=== PATIENT | female | born 1960 | race Caucasian/White ===

== ENCOUNTER 2019-12-27 09:51 | Emergency (ER) | payer OTHER, SELFPAY ==
[2018-10-11 13:12] VITALS: BMI 44.6
[2019-12-27 09:53] VITALS: BP 171/88; PULSE 80; RESP 18; TEMP 36.9; O2SAT 95; BMI 42.5
--- NOTE | 2019-12-27 10:14 | RAD_ITS ---
STUDY: X-RAY CHEST REASON FOR EXAM: Female, 59 years old. COUGH X 2 WEEKS TECHNIQUE: Single frontal view of the chest. COMPARISON: None. FINDINGS: Prominent interstitial markings with areas of basilar patchy airspace disease and groundglass opacities are present. There is no demonstrated pleural abnormality. Normal size heart. Normal mediastinum and esha. Normal visualized pulmonary arteries. Normal visualized aortic arch and descending thoracic aorta. Normal visualized thoracic spine. Normal visualized ribs, clavicles, and shoulders. There is no demonstrated abnormality of the visualized soft tissue structures of the upper abdomen. RAD/Chest 1 View (Portable) IMPRESSION: Prominent interstitial markings with areas mid lung and lower lung bilateral patchy airspace disease and groundglass opacity with underlying infectious etiology/viral component not excluded, clinically correlate. Electronically Signed: Angel Beach DO at 11:39 EDT , Service support ,
[2019-12-27 10:42] LABS: Absolute Lymphocyte Count 0.95 X10^3/uL (0.83-4.51); Absolute Neutrophil Count 4.5 X10^3/uL (2.0-7.7); Basophil# 0.01 X10^3/uL; Basophil% 0.2 % (0-1); Hematocrit 36.7 % (37-47); Hemoglobin 11.7 g/dL (12.0-15.0); Lymphocyte # 0.95 X10^3/ul (4.0); Lymphocyte % 16.5 % (19-41); Mean Corp Hgb Conc 31.9 g/dL (32-36); Mean Corpuscular Hgb 26.7 pg (27.0-32.0); Mean Corpuscular Volume 83.8 fL (81-99); Monocyte# 0.27 X10^3/uL; Monocyte% 4.7 % (0-10); NRBC Flagged by Analyzer 0 % (0-5); Neutrophil # 4.49 X10^3/uL (2.7-7.7); Neutrophil % 77.9 % (47-70); POSITIVE MORPHOLOGY YES; Platelet Count 412 K/mm3 (150-450); RBC Distribution Width CV 14.7 % (11.6-14.6); RBC Distribution Width SD 45.3 fl (35.1-43.9); Red Blood Count 4.38 M/mm3 (4.2-5.4); White Blood Count 5.8 K/mm3 (4.4-11.0)
[2019-12-27 10:46] LABS: Differential Indicated SCAN CRITERIA MET
--- NOTE | 2019-12-27 11:01 | ED.VIS.URI ---
History of Present Illness Informant: Patient Onset: Weeks - 2 weeks Context: Gradual Onset Timing: Continuous Quality: fatigue Location: entire body Current Severity: Moderate Maximum Severity: Severe Worsened by: - - nothing Relieved by: - - nothing Associated Symptoms: Nasal Congestion, Myalgias, Nausea, Diarrhea, Productive Cough. Negative for: Headache, Sinus Pressure, Vomiting, Shortness of Breath, Chest Pain, Nonproductive cough, Hemoptysis Narrative: 59-year-old female history of hypertension presents with flulike symptoms for 2 weeks. She has been having intermittent fevers for 2 weeks and diarrhea as well as productive cough with sputum. No chest pain no shortness of breath no hemoptysis no headache no neck pain no leg pain or swelling no lightheadedness or dizziness no back pain. 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 so she can return Prior similar symptoms: No Recent Illness/Hospitalization: No <Blake Chang - Last Filed: 12/27/19 12:06> <Cayla Thopmson - Last Filed: 12/27/19 12:46> Chief Complaint: Fever Past Medical History Prior records reviewed: Yes Past Medical History: - - HTN Surgical History: hysterectomy, tonsillectomy Lives: With Family Smoking Status: Never smoker Alcohol: None Drugs: None <Blake Chang - Last Filed: 12/27/19 12:06> <Cayla Thompson - Last Filed: 12/27/19 12:46> - Allergies and Home Meds Allergies/Adverse Reactions: Allergies No Known Allergies Allergy (Verified 12/27/19 09:53) Primary Care Physician: Haile Wilhelm MD [STAFF PHYSICIAN] - 3-5 Days Review of Systems General: Reports: Chills, Fever, Malaise Eyes: Denies: Visual changes - bilaterally, Blurred Vision - bilaterally, Diplopia ENT: Denies: Rhinorrhea, Sore throat Cardiovascular: Denies: Chest pain, Palpitations, Heart racing Respiratory: Reports: Cough, Sputum. Denies: Dyspnea, Dyspnea on exertion, Orthopnea, Paroxysmal nocturnal dyspnea Gastrointestinal: Reports: Nausea, Diarrhea. Denies: Abdominal pain, Vomiting, Constipation, Melena, Hematochezia Genitourinary: Denies: Dysuria, Hematuria, Frequency Musculoskeletal: Reports: Myalgias. Denies: Arthralgias, Neck pain, Back pain, Swelling, Extremity Pain Skin: Denies: Rash, Abscess, Abrasions, Wounds Neurological: Denies: Headache, Weakness, Parasthesia Psych: Denies: Depression, Anxiety Hematologic: Denies: Easy bruising, Easy bleeding <Blake Chang - Last Filed: 12/27/19 12:06> Physical Exam Vital Signs/Narrative: Vital Signs Temp Pulse Resp BP Pulse Ox 12/27/19 09:53 98.5 F 80 18 171/88 H 95 Inital Vital Signs reviewed: Yes General: Well nourished, Well developed Head: Normocephalic, Atraumatic Ears: Normal external canal, TM's clear Nose: Normal Inspection, No Rhinorrhea Mouth/Throat: Normal Inspection, No Posterior Erythema, Airway Patent Neck: Supple, Nontender, No Lymphadenopathy, No Meningismus Cardiovascular: Regular rate, Regular rhythm, No murmurs Respiratory: No distress, CTA bilaterally, Chest nontender Abdomen: Soft, Nontender, Nondistended, Normal bowel sounds, No masses Back: Nontender, Normal Inspection. Negative for: CVA tenderness Extremities: Nontender, No edema Skin: Normal color, No rash, No Trauma Neurological: Alert, Oriented x3 Psychological: Normal affect, Normal Mood <Blake Chang - Last Filed: 12/27/19 12:06> Vital Signs/Narrative: Vital Signs Temp Pulse Resp BP Pulse Ox 12/27/19 12:16 72 18 146/55 H 94 12/27/19 11:32 98.1 F 75 17 146/55 H 95 12/27/19 11:29 76 17 96/66 96 12/27/19 09:53 98.5 F 80 18 171/88 H 95 <Cayla Thompson - Last Filed: 12/27/19 12:46> Diagnostic/Tx/Re-eval Chest X-Ray - ED: 1 View, Read by ED Physician, Read by Radiologist, - - Bilateral groundglass changes concerning for COVID-19 - EKG Initial EKG Interpretation: Sinus Rhythm, S-T Depression Prior: No Prior - Medical Decision Making On arrival patient was complaining of symptoms that were concerning for coronavirus therefore she was placed in proper isolation room all protective equipment was worn during history and physical exam and multiple repeat evaluations. Patient had no fever. Laboratory work-up showed a potassium of 2.7. The rest of her labs are unremarkable. EKG showed some lateral ST depressions but no ST elevations. Rhythm is sinus rhythm. She has no previous EKG at this time that is available for comparison. Chest x-ray showed prominent interstitial markings with areas of midlung and lower lung bilateral patchy airspace disease and groundglass opacity with underlying infectious etiology or viral component not excluded and they recommended clinical correlation. I spoke with health department they approved a test for coronavirus this was sent to the health department. Discussed with patient we do think that she likely has this based off of her chest x-ray and symptoms. She will continue to self quarantine. We will give her 60 mEq of potassium replacement here followed by 4 more days of 20 mEq twice daily and she was advised to follow closely with her doctor and they will contact her with results for coronavirus testing. Impressions Chest X-Ray 12/27/19 10:14 IMPRESSION: Prominent interstitial markings with areas mid lung and lower lung bilateral patchy airspace disease and groundglass opacity with underlying infectious etiology/viral component not excluded, clinically correlate. Electronically Signed: Angel DO Yong at 11:39 EDT , Service support , 12/27/19 10:14 Chest 1 View (Portable) [RAD] Stat Laboratory Results 12/27/19 12/27/19 10:30 10:30 WBC 5.8 RBC 4.38 Hgb 11.7 L Hct 36.7 L MCV 83.8 MCH 26.7 L MCHC 31.9 L RDW Std Deviation 45.3 H RDW Coeff of Julio 14.7 H Plt Count 412 MPV 9.0 Immature Gran % (Auto) 0.700 Neut % (Auto) 77.9 H Lymph % (Auto) 16.5 L Baxter % (Auto) 4.7 Eos % (Auto) 0.0 Baso % (Auto) 0.2 Absolute Neuts (auto) 4.5 Absolute Lymphs (auto) 0.95 Nucleated RBC % 0 Reactive Lymphocytes RARE Sodium 138 Potassium 2.7 L* Chloride 103 Carbon Dioxide 27.0 Anion Gap 8 BUN 11 Creatinine 0.67 Estim Creat Clear Calc 66.54 Est GFR (MDRD) Af Amer 115 Est GFR (MDRD) Non-Af 95 BUN/Creatinine Ratio 16.4 Glucose 124 H Calcium 8.3 L <Blake Chang - Last Filed: 12/27/19 12:06> - Medical Decision Making Patient seen and evaluated with physicians assistant professor of mathematics. Patient was independently evaluated and examined. Patient presents with 2-week history of fevers, nausea, vomiting, diarrhea. She has had mild cough. Patient does work at a assisted. She was offered Covid testing earlier this week but declined. Patient sitting upright in bed no acute distress. Head neck examination unremarkable. Heart is regular rate and rhythm. Lung sounds are clear. Abdomen is soft and nontender. Labs are obtained. Patient does have hypokalemia and is given oral replacement here. She tolerates this well. EKG is obtained that shows minimal ST depression. No typical changes associated with hypokalemia. COVID test was obtained and sent. Patient was advised she would receive results via telephone. If her symptoms worsen in any way she is to return to the emergency room. Vital signs are stable and O2 sats are in the mid to upper 90s. <Cayla Thompson - Last Filed: 12/27/19 12:46> ED Disposition <Blake Chang - Last Filed: 12/27/19 12:06> <Cayla Thompson - Last Filed: 12/27/19 12:46> - Plan for ED Patient: Disposition: Home or Assisted Living Diagnosis: Viral syndrome, rule out COVID-19, Hypokalemia Instructions: ED Viral Syndrome Prescriptions: Potassium Chloride [K-Dur] 20 meq PO BID #8 tab Transmission Status: Received by [facility] [facility] Referrals: Haile Wilhelm MD [STAFF PHYSICIAN] - 3-5 Days
[2019-12-27 11:07] LABS: Anion Gap 8 (5-15); BUN 11 mg/dL (7-18); BUN/Creat Ratio 16.4 RATIO (10-20); Calcium,Total 8.3 mg/dL (8.5-10.1); Chloride 103 mmol/L (98-107); Creatinine, Serum 0.67 mg/dL (0.55-1.02); EST Glomerular Filtration Rate 95 mL/min (>60); Est Glom Filt Rate - Afr Amer 115 mL/min (>60); Estimated Creatinine Clearance 66.54 ml/min; Glucose 124 mg/dL (74-106); Potassium 2.7 mmol/L (3.5-5.1); Sodium Level 138 mmol/L (136-145)
[2019-12-27 11:12] LABS: Reactive Lymphocyte RARE
--- NOTE | 2019-12-27 11:28 | EKG12_ITS ---
Test Reason : DYSRHYTHMIA Blood Pressure : / mmHG Vent. Rate : 072 BPM Atrial Rate : 072 BPM P-R Int : 168 ms QRS Dur : 086 ms QT Int : 412 ms P-R-T Axes : 064 069 037 degrees QTc Int : 451 ms Normal sinus rhythm Nonspecific ST and T wave abnormality Abnormal ECG Confirmed by JUMA BYRD, MARKUS ([id number]), society editor ALEXANDER PRAJAPATI ([id number]) on 12/30/2019 9:02:28 AM Referred By: PANKAJ Confirmed By:MARKUS DENNISON MD
[2019-12-27 11:29] VITALS: BP 96/66; PULSE 76; RESP 17; O2SAT 96
[2019-12-27 11:32] VITALS: BP 146/55; PULSE 75; RESP 17; TEMP 36.7; O2SAT 95
[2019-12-27 12:16] VITALS: BP 146/55; PULSE 72; RESP 18; O2SAT 94
== END 2019-12-27 12:21 | disposition home or self-care (01) ==
PROVIDERS: Emergency Medicine; Emergency Provider Physician Assistant Medical
DX: B34.9 Viral infection, unspecified (principal); E87.6 Hypokalemia; I10 Essential (primary) hypertension
CPT/HCPCS: 71045; 80048; 85025; 87635; 93005; 96360; 96361; 99284; J7040; U0004

== ENCOUNTER 2021-02-24 10:49 | Emergency (ER) | payer OTHER, SELFPAY ==
[2021-02-24 10:51] VITALS: BP 166/85; PULSE 74; RESP 16; TEMP 36.3; O2SAT 98; BMI 47.5
--- NOTE | 2021-02-24 10:59 | ED.VIS.FALL ---
HPI HPI - Fall History of Present Illness Chief Complaint: Fall Occured/Mechanism Occurred: Today Mechanism/Context: Yes trip and Yes slip Pain/Injury Quality of Pain: Dull Current Severity: Moderate Maximum Severity: Moderate Narrative Narrative: The patient is a 60-year-old female medical history significant for hypertension who presents to the emergency department after a fall. Patient was at work. States she was ambulating. She thinks that she tripped over her feet. She fell forward and landed on both knees and then struck her right elbow. She did not strike her head. She denies loss of consciousness. She is complaining of pain in both knees. She is concerned because she has had bilateral knee replacements. She denies other injury. She is otherwise been in her normal state of health. [facility] Medical History Arthritis Fatigue Hay fever Hypertension Severe headache Home Medications levothyroxine 25 mcg capsule 25 mcg PO DAILY 10/11/18 [History Last Taken 12/27/19] losartan 25 mg tablet 25 mg PO DAILY 10/11/18 [History Last Taken 12/27/19] omeprazole 20 mg tablet,delayed release 20 mg PO DAILY 10/11/18 [History Last Taken 12/27/19] sertraline 25 mg tablet 25 mg PO DAILY 10/11/18 [History Last Taken 12/27/19] trazodone 100 mg tablet 100 mg PO DAILY 10/11/18 [History Last Taken 12/27/19] potassium chloride 20 meq PO BID #8 tab 12/27/19 [Rx Last Taken Unknown] hydrocodone-acetaminophen 1 tab PO Q6H PRN PRN 3 Days #10 tablet 02/24/21 [Rx Last Taken Unknown] Allergy/AdvReac Type Severity Reaction Status Date / Time No Known Allergies Allergy Verified 02/24/21 10:49 Social History Smoking Status: Never smoker alcohol intake: never ROS ROS ED Constitutional Constitutional ED: Denies chills or fever(s) Eyes Eyes: Denies blurry vision or change in vision ENT ENT ED: Denies ear pain or sore throat Cardiovascular Cardiovascular: Denies chest pain or palpitations Respiratory/Chest Respiratory/Chest: Denies cough, dyspnea or dyspnea on exertion Gastrointestinal Gastrointestinal: Denies abdominal pain, nausea or vomiting Genitourinary Genitourinary ED: Denies dysuria or urinary frequency Musculoskeletal Musculoskeletal: Denies arthralgias or myalgias Integumentary Denies rash Neurologic Neurologic: Denies headache(s) or paresthesias Psychiatric Psychiatric: Denies anxiety or depression Endocrine Endocrinology: Denies polydipsia or polyuria Allergic/Immunologic Allergic/Immunologic ED: Denies urticaria EXAM Physical Exam Const Vital Signs: 02/24/21 10:51 02/24/21 11:18 Temperature 97.3 F L Temperature Source Temporal Pulse Rate 74 Respiratory Rate 16 Respiratory Effort Normal Non-Labored Respiratory Depth Normal Respiratory Pattern Normal Blood Pressure 166/85 H Blood Pressure Mean 112 Pulse Ox 98 Oxygen Delivery Method Room Air Room Air Positive well nourished and well developed General Appearance ED: well developed HEENT Reports normocephalic, head/scalp atraumatic and moist mucous membranes Eyes PERRL and EOMs intact bilaterally Neck no lymphadenopathy and supple General: Negative for tenderness Chest Wall inspection of chest normal Resp normal respiratory effort and clear to auscultation bilaterally Cardio regular rate, regular rhythm and no murmurs GI normal to inspection, nondistended, normoactive bowel sounds Palpation: Negative for tender, guarding or rebound tenderness present Back/Spine no CVA tenderness Cervical Spine: Negative for cervical spine tenderness Thoracic Spine / Upper Back: Negative for thoracic spinal tenderness Extremity normal to inspection Extremity Narrative: Mild tenderness palpation of bilateral knees. Extension preserved. No gross laxity. Normal pulses. General Extremety ED: Negative for tenderness Neuro oriented x3 and CN's II-XII intact bilaterally Neuro Narrative: No focal deficits appreciated. Sensorium / Orientation: alert Psych mental status grossly normal Skin no rashes or lesions noted, no wounds and skin turgor normal MDM MDM MDM Narrative Medical decision making narrative: Patient presents after mechanical fall. She had no head injury. Her major complaint is of pain in the knees. She is able to bear weight, but does have bilateral prostheses. There is a small abrasion but no evidence of open fracture. Plain films were obtained of bilateral knees. They are reviewed by both myself and the radiologist. The hardware is intact. There is no fracture. At this point, the patient be discharged home with follow-up with corporate [facility]. She is given a short course of analgesics. Impression 1. Mechanical fall 2. Bilateral knee contusion Radiography Diagnostic Testing: Radiology Impression Knee X-Ray 02/24/21 11:30 IMPRESSION: Status post total knee replacement. Soft tissue swelling. Electronically Signed: Adolph Pineda MD at 12:20 EDT , Service support , Knee X-Ray 02/24/21 11:42 IMPRESSION: Status post total knee replacement. No acute abnormality is seen. Electronically Signed: Adolph Pineda MD at 12:19 EDT , Service support , Discharge Plan Triage Chief Complaint: Fall ED Provider: Rizwan Tsang Dx/Rx/DC Orders Instructions: ED Knee Sprain Prescriptions: New hydrocodone-acetaminophen [hydrocodone-acetaminophen] 1 TABLET tablet 1 tab PO Q6H PRN PRN (Reason: Pain) 3 Days Qty: 10 RF: 0 No Action trazodone 100 mg tablet 100 mg PO DAILY RF: 0 sertraline 25 mg tablet 25 mg PO DAILY RF: 0 levothyroxine 25 mcg capsule 25 mcg capsule 25 mcg PO DAILY RF: 0 losartan 25 mg tablet 25 mg PO DAILY RF: 0 omeprazole 20 mg tablet,delayed release (DR/EC) 20 mg PO DAILY RF: 0 potassium chloride 20 MEQ tablet 20 meq PO BID Qty: 8 RF: 0 Primary Care Provider: Sai Blanchard Referrals: [facility] [GROUP OF PHYSICIANS] - 1-2 Days if not improving Sai Blanchard MD [Primary Care Provider] -
[2021-02-24] MEDS: HYDROcodone Bitartrate/Apap 5/325 Tablet PO (11:17)
--- NOTE | 2021-02-24 11:30 | RAD_ITS ---
STUDY: X-RAY - LEFT KNEE REASON FOR EXAM: Female, 60 years old. Fall TECHNIQUE: 4 view(s) of the knee. COMPARISON: None. FINDINGS: Normal visualized distal femur. Normal visualized proximal tibia and fibula. Normal proximal tibiofibular articulation. The patient is status post total knee replacement. Soft tissue swelling. No fracture is seen. RAD/Knee 4 or More Views IMPRESSION: Status post total knee replacement. Soft tissue swelling. Electronically Signed: Adolph Pineda MD at 12:20 EDT , Service support ,
--- NOTE | 2021-02-24 11:42 | RAD_ITS ---
STUDY: X-RAY - RIGHT KNEE REASON FOR EXAM: Female, 60 years old. Pain following a fall. TECHNIQUE: 4 view(s) of the knee. COMPARISON: None. FINDINGS: Normal visualized distal femur. Normal visualized proximal tibia and fibula. Normal proximal tibiofibular articulation. The patient is status post total knee replacement. The soft tissue structures are unremarkable. RAD/Knee 4 or More Views IMPRESSION: Status post total knee replacement. No acute abnormality is seen. Electronically Signed: Adolph Pineda MD at 12:19 EDT , Service support ,
[2021-02-24 12:51] VITALS: PULSE 81; RESP 16; O2SAT 99
--- NOTE | 2021-02-24 12:52 | ED.RN ---
THIS NURSE REVIEWED D/C INSTRUCTIONS WITH PT AND . PT VERBALIZED UNDERSTANDING OF INSTRUCTIONS. PT DENIES FURTHER NEEDS OR QUESTIONS AT THIS TIME
== END 2021-02-24 12:53 | disposition home or self-care (01) ==
LOC: ED 11:19
PROVIDERS: Emergency Provider Emergency Medicine; PCP Family Medicine
DX: S80.02XA Contusion of left knee, initial encounter (principal); S80.01XA Contusion of right knee, initial encounter; W19.XXXA Unspecified fall, initial encounter
CPT/HCPCS: 73564; 99283

== ENCOUNTER 2021-07-29 13:30 | Outpatient (RCR) | payer OTHER, SELFPAY ==
--- NOTE | 2021-05-20 15:56 | HP.PTEVAL ---
Patient's Visit Information VANESSA JIMENEZ is a 60 year old F referred to Physical Therapy by SHARON Infante with a diagnosis of Bilateral knee contusion. Date of Evaluation: 05/20/21 Physical Therapist: Deshaun Inman DPT - Visit Plan Frequency: 3x /Week Duration: 4 Weeks Plan: Begin with gentle core strengthening and LE AROM/stretching exercises, progressing to more advanced core and LE strengthening while keeping pain at manageable levels. 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 On February 24, while walking down hallway, her non skid shoe stuck on floor, and she tripped and fell. She had bruising and pain in both knees, R leg eventually resolved after 1 month, but L knee is still giving her trouble with pain shooting down to foot and up into back. Per her doctor, she is to try and stand for no more than 10 minutes, or walk 100' to prevent exacerbation of pain, but pt reports that is not always possible as she has continued to work. 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 Had physical therapy in [place] ending 2 wks ago. Pt had been doing HEP up until that point. Reports minimal improvements with stretching/strengthening but that massage to knee area seemed to help the most. PMH: L knee replaced Aug 2005 and R knee replaced Aug 2006. Surgery for Achilles Jun 2012, de-hissed requiring repair, skin grafts that would not take resulted in 5 more surgeries, most recent being February 2013. Pain: Currently, at rest 4/10. At worst, 8/10, pt has difficulty sleeping. Sleeps best on L side. Standing/walking exacerbates pain. At best, 2/10, right after getting up in the morning. Takes Tyelnol for pain. Ice and heat doesn't seem to make much of a difference. X-ray was negative. - Pain L knee/back Pain Intensity (Out of 10): 4 Pain Intensity Range: 2, 8 Comment: Pain radiates down into foot and up into back. - Objective Posture unremarkable. Pt reports occ N&T from knee down into foot, but not up into back. Diminished sensation over surgical scars B knees. PALPATION: pain over entire aspect of L knee with palpation. A/P glide to L knee decreased due to increased swelling. Pain with light pressure to L1-5 and across B top of iliac crest. ROM: Full forward trunk flexion with pain at EROM in back. Full extension with pain at EROM in back. Sidebending- fingertips to knee B. Limited rotation in either direction with pain at EROM. B knee/ankle ROM WFL. SLR limited by tight B HS. MMT: L knee: 5/5 F/E with pain with resisted extension. Pain with resisted ankle DF on L side on top of ankle; ankles otherwise 5/5 B. R knee 5/5 F/E no pain. L hip flexion 3+/5 with pain starting in low back down the whole leg. R hip flexion 4/5 no pain. Abd/Adduction 5/5 no pain. Fair core strength. GAIT: Pt reports she is favoring her R knee with gait. Ambulates with decreased gait speed and increased lateral displacement/decreased trunk rotation. - Balance/Special Test Scores Lower Extremity Functional Score: 25 - Goals Goal 1:: Pt will report compliance/independence with HEP Goal Time Frame: 2 Weeks Goal 2:: Pt to demonstrate LLE strength equal to RLE as indicated during functional strengthening activities with 0-2/10 pain reported. Goal Time Frame: 4-6 Weeks Goal 3:: Pt to ambulate at least 750' without compensations/guarding and with no more than 2/10 pain in order to return to work activities. Goal Time Frame: 4-6 Weeks Goal 4:: Pt to perform full and AROM of LEs/trunk without pain at EROM to increase participation in functional activities at work. Goal Time Frame: 2-4 Weeks Goal 5:: Pt to tolerate standing for at least 20 minutes with 0-2/10 pain, in order to return to tasks required of her at work. Goal Time Frame: 4-6 Weeks - Rehabilitation Potential Physical Therapy Diagnosis: Pt s/s consistent with impact injury to knees, especially affecting the left. Suspect lower back injury involvement as well from pt presentation. Pt would benefit from core strengthening and LE stretching/strengthening to alleviate pain symptoms. Rehabilitation Potential: Good - Anticipated Interventions Patient/Client Instruction: Educate patient on: Condition, Plan of Care Therapeutic Exercise to Include: Strength training, Endurance training, Balance training, Postural training, Flexibilty training, Gait and locomotor training, Passive ROM, Active ROM For the Purpose of:: To decrease pain, To decrease swelling/inflammation, To improve muscle performance and motor function, To increase tolerance to activity/condition/position, To improve gait and locomotor functions Manual Therapy Techniques to Include: Massage, Passive ROM For the Purpose of:: To decrease pain, To decrease swelling/inflammation, To increase ROM Cryotherapy (ice pack, ice massage): Yes - PRN Thermo therapy (hot pack): Yes - PRN For the Purpose of:: To decrease pain, To decrease swelling/inflammation Thank you for the opportunity to evaluate your patient. For Medicare and Medicare HMO plans, please review the plan of care and approve it. It will need to be FAXED BACK to us at [phone] for Medicare purposes. For Medicare only, by signing this I certify the plan of care. Please let me know if there are questions or concerns regarding this plan of care. Physician Signature: Date:
--- NOTE | 2021-06-20 09:29 | HP.PTREVAL_ITS ---
SHARON Infante, It has been my pleasure to treat VANESSA JIMENEZ over the last 8 visits for Bilateral knee contusion. Please see the progress note below for an update on the physical therapy plan of care! Subjective: Pt reports that she fell in February and the whole L side hurts from her hip down to her foot. They (Dr Schmidt and [facility]) have narrowed it down to her back. The pain is from her back to her knee (still a sore spot in her knee) and her foot tingles. Pain is constant and worse with standing. X-rays of back and x-rays of knees. Follow up with [facility] at the [facility]. She is back to work but on restrictions. If patients stands for 20 min she gets pain about 6/10 and takes Tylenol Objective/Function: Gait: Walks with short stride but even shorter stride on the L compared to the R. Trunk AROM: flexion 100%, Ext 100%, Sb B 75%, Rot 50% normal ROM. Pt is able to rise up on heels and toes. Pt is able to do standing hip flexion and walk BW without any difficulty. LE MMT: hip flex B 3+/5 (not full ROM), R hip abd 4/5 and L 4-/5, B hip ext 4-/5, B knee flex and knee ext 4/5. Decreased B hip flexion AROM. Press ups 1 X 10 (increased back pain in full extension but nothing lasting). Tight L piriformis compared to the R (but this position increases back, knee and L heel and into big toe pain)..... Palpation: VERY tender over L piriformis. seated trunk flexion X 10( felt a stretch in LB but did not change either way back and leg pain). Seated foam rolling of the L piriformis was sore (in a chair) using arms of the chair to help roll. Plan Plan: 2X/ week for 4 weeks for manual or active chair foam rolling of piriformis, manual and AA stretching of L pirifomis, MT/massage gun to L piriformis. L hip PROM. See effectiviness of above and then work on L hip strength with more core stability. HEP: bridges, LTR, supine piriformis stretch with a strap. Balance/Gait/Functional tests - Balance/Special Test Scores Lower Extremity Functional Score: 30 Goals Goal 1:: Pt will report compliance/independence with HEP Goal Time Frame: 2 Weeks Goal Progress: Goal Met Goal 2:: Pt to demonstrate LLE strength equal to RLE as indicated during functional strengthening activities with 0-2/10 pain reported. Goal Time Frame: 4-6 Weeks Goal 3:: Pt to ambulate at least 750' without compensations/guarding and with no more than 2/10 pain in order to return to work activities. Goal Time Frame: 4-6 Weeks Goal 4:: Pt to perform full and AROM of LEs/trunk without pain at EROM to increase participation in functional activities at work. Goal Time Frame: 2-4 Weeks Goal Progress: Progressing Goal 5:: Pt to tolerate standing for at least 20 minutes with 0-2/10 pain, in order to return to tasks required of her at work. Goal Time Frame: 4-6 Weeks Anticipated Interventions Patient/Client Instruction: Educate patient on: Condition, Plan of Care Therapeutic Exercise to Include: Strength training, Endurance training, Balance training, Postural training, Flexibilty training, Gait and locomotor training, Passive ROM, Active ROM For the Purpose of:: To decrease pain, To decrease swelling/inflammation, To improve muscle performance and motor function, To increase tolerance to acti vity/condition/position, To improve gait and locomotor functions Manual Therapy Techniques to Include: Massage, Passive ROM For the Purpose of:: To decrease pain, To decrease swelling/inflammation, To increase ROM Cryotherapy (ice pack, ice massage): Yes - PRN Thermo therapy (hot pack): Yes - PRN For the Purpose of:: To decrease pain, To decrease swelling/inflammation Please do not hesitate to contact me at [phone] by phone or if you have questions or concerns regarding this new plan of care! Sincerely, Nenita Bains, MPT
--- NOTE | 2021-07-29 13:51 | HP.PTDCSUM ---
It has been my pleasure to treat VANESSA JIMENEZ referred by SHARON Infante, with the diagnosis of Bilateral knee contusion for a total of 18 visit(s). Discharge Date: 07/29/21 Please see the following information for a summary of their discharge status. Subjective: Pt states that her knee is still painful. Things at work are rough due to short staffed. Standing still bother her. She can stand between 10-15 min and then it starts to bother her. She pretty much stands all day and takes Tylenol. Pain is about the same but strength is somewhat better. She goes back to her Dr on Sunday. L knee/back Pain Intensity (Out of 10): 6 back pain Pain Intensity (Out of 10): 6 L hip pain Pain Intensity (Out of 10): 6 L knee pain Pain Intensity (Out of 10): 6 L foot pain Pain Intensity (Out of 10): 6 % Improvement: 25 Objective/Function: Gait: walks with short strides and decreases stance time on the L LE. Stairs: up and down recip with two railing but has a hard time using that L leg ascending the step and has to turn Sideways descending the step due to increase L knee pain. LE MMT: B Hip flex 4-/5, Knee ext 4/5, knee flex 4/5 Goal 1:: Pt will report compliance/independence with HEP Goal Progress: Goal Met Goal 2:: Pt to demonstrate LLE strength equal to RLE as indicated during functional strengthening activities with 0-2/10 pain reported. Goal Progress: Not Progressing Goal 3:: Pt to ambulate at least 750' without compensations/guarding and with no more than 2/10 pain in order to return to work activities. Goal Progress: Not Progressing Goal 4:: Pt to perform full and AROM of LEs/trunk without pain at EROM to increase participation in functional activities at work. Goal Progress: Progressing Goal 5:: Pt to tolerate standing for at least 20 minutes with 0-2/10 pain, in order to return to tasks required of her at work. Goal Progress: Not Progressing Plan: DC PT to HEP Discharge Comments: DC PT back to physician If there are questions or concerns regarding this patient's physical therapy, please feel free to call me at [phone]. Thank you for the referral of this patient. Sincerely, Nenita Bains, MPT Balance/Gait/Functional tests - Balance/Special Test Scores Lower Extremity Functional Score: 25
== END 2021-07-29 19:00 | disposition home or self-care (01) ==
LOC: PT 13:30
PROVIDERS: PCP Family Medicine; Referring Provider Physician Assistant Surgical; Visit Provider Physician Assistant Surgical
DX: S80.01XD Contusion of right knee, subsequent encounter (principal)
CPT/HCPCS: 97110; 97161; 97164; 97530